=== PATIENT | female | born 1975 | race Asian ===

== ENCOUNTER 2017-03-04 09:51 | Emergency (ER) | payer BC ==
[~2017-03-04] VITALS: Ht 154.9 cm; Wt 65.8 kg
[~2017-03-04 09:51] MED LIST: DIOVAN HC1 PO; FLUTMIS6 INH
[2017-03-04 11:18] VITALS: BP 158/76; TEMP 98.2
== END 2017-03-04 11:21 | disposition home or self-care (01) ==
LOC: ED 09:51
DX: T78.49XA Other allergy, initial encounter (principal); X58.XXXA Exposure to other specified factors, initial encounter; L03.116 Cellulitis of left lower limb; L03.115 Cellulitis of right lower limb; I10 Essential (primary) hypertension
CPT/HCPCS: 90715; 96372; 99282; J2930

== ENCOUNTER 2017-11-17 23:48 | Emergency (ER) | payer OTHER ==
[~2017-11-17] VITALS: Ht 157.5 cm; Wt 2.3 kg
[2017-11-18 02:36] LABS: PLATELET COUNT 265 K/uL (152-353)
[2017-11-18 02:42] LABS: POTASSIUM 3.3 mmol/L (3.6-5.2)
[2017-11-18 03:27] VITALS: BP 129/82; TEMP 98.2
== END 2017-11-18 03:30 | disposition home or self-care (01) ==
LOC: ED 23:48
PROVIDERS: Specialist
DX: R10.9 Unspecified abdominal pain (principal)
CPT/HCPCS: 36415; 80053; 82150; 83690; 85027; 96372; 99283; J2175; J2550

== ENCOUNTER 2019-08-21 00:37 | Emergency (ER) | payer OTHER ==
[~2019-08-21] VITALS: Ht 154.9 cm; Wt 62.6 kg
[2019-08-21 01:05] LABS: PLATELET COUNT 242 K/uL (152-353)
[2019-08-21 01:40] LABS: POTASSIUM 3.7 mmol/L (3.6-5.2)
[2019-08-21 03:31] VITALS: BP 128/75; TEMP 99.7
== END 2019-08-21 03:20 | disposition home or self-care (01) ==
LOC: ED 00:37
PROVIDERS: Student in an Organized Health Care Education/Training Program
DX: J70.5 Respiratory conditions due to smoke inhalation (principal); S60.512A Abrasion of left hand, initial encounter; S60.511A Abrasion of right hand, initial encounter; X08.8XXA Exposure to other specified smoke, fire and flames, initial encounter; Y93.89 Activity, other specified; Y92.028 Other place in mobile home as the place of occurrence of the external cause; T23.152A Burn of first degree of left palm, initial encounter; T23.151A Burn of first degree of right palm, initial encounter; F43.29 Adjustment disorder with other symptoms
CPT/HCPCS: 36600; 80053; 81000; 81025; 82805; 85027; 86850; 86900; 86901; 90471; 90715; 96360; 96361; 96375; 99284; J1885; J2060

== ENCOUNTER 2020-07-31 13:40 | Outpatient (CLI) | payer OTHER ==
[2020-07-31 14:26] LABS: PLATELET COUNT 295 K/uL (152-353)
[2020-07-31 15:54] LABS: POTASSIUM 4.1 mmol/L (3.6-5.2)
== END 2020-07-31 22:24 | disposition home or self-care (01) ==
LOC: LABW 13:40
PROVIDERS: ATTEND Nurse Practitioner Adult Health
DX: I10 Essential (primary) hypertension (principal); Z72.0 Tobacco use; F33.8 Other recurrent depressive disorders
CPT/HCPCS: 36415; 80053; 80061; 82306; 83036; 84436; 84443; 84479; 85027

== ENCOUNTER 2021-03-31 22:04 | Emergency (ER) | payer OTHER ==
[~2021-03-31] VITALS: Ht 154.9 cm; Wt 62.6 kg
[2021-03-31 22:11] VITALS: BP 154/84; TEMP 98
== END 2021-03-31 23:26 | disposition home or self-care (01) ==
LOC: ED 22:04
DX: M79.18 Myalgia, other site (principal); R07.89 Other chest pain; M25.571 Pain in right ankle and joints of right foot; V89.2XXA Person injured in unspecified motor-vehicle accident, traffic, initial encounter; Y92.89 Other specified places as the place of occurrence of the external cause
CPT/HCPCS: 96372; 99282; J1885

== ENCOUNTER 2021-06-02 10:04 | Emergency (ER) | payer OTHER ==
[~2021-06-02] VITALS: Ht 154.9 cm; Wt 62.6 kg
[2021-06-02 11:15] LABS: PLATELET COUNT 266 K/uL (152-353)
[2021-06-02 11:19] LABS: POTASSIUM 3.9 mmol/L (3.6-5.2)
[2021-06-02 13:17] VITALS: BP 176/97; TEMP 98
== END 2021-06-02 13:35 | disposition home or self-care (01) ==
LOC: ED 10:04
PROVIDERS: Family Medicine
DX: I10 Essential (primary) hypertension (principal); F17.210 Nicotine dependence, cigarettes, uncomplicated
CPT/HCPCS: 80053; 85027; 99283

== ENCOUNTER 2021-06-08 16:43 | Inpatient (IN) | payer OTHER ==
[2021-06-08] VITALS (7 sets, daily range): BP systolic 115–191; BP diastolic 67–103; TEMP 96.4–98.6; Ht 152.4 cm; Wt 61.3 kg
[~2021-06-08] VITALS: Ht 152.4 cm; Wt 61.3 kg
[2021-06-08 17:17] LABS: PLATELET COUNT 280 K/uL (152-353)
[2021-06-08 17:22] LABS: POTASSIUM 4.3 mmol/L (3.6-5.2); SODIUM 138 mmol/L (136-145)
[2021-06-08 17:41] LABS: PARTIAL THROMBOPLASTIN TIME 24.9 SECONDS (24.5-33.6)
[2021-06-09] VITALS (8 sets, daily range): BP systolic 107–156; BP diastolic 66–102; TEMP 97.9–98.4
--- NOTE | 2021-06-09 01:41 | NUR ---
06/08/21 1900 PM NEW ADMISSION ASSESSMENTS 1 AND 2 BEING COMPLETED AT THIS TIME. NEURO CHECKS WERE PERFORMED AND NOTED RIGHT ARM WEAKNESS/DEFICIT. UNABE TO GRASP AND LIFT NORMAL. PUPILS ARE REACTIVE AND EQUAL. PT WITH HX OF HYPERTENTION. PT IS ALERT AND ABLE TO ANSWER QUESTIONS. PT IS WATCHING TELEVISION. PM MEDICATIONS WERE GIVEN AT 21:00PM. BEDSIDE TABLE IN EASY REACH. CALL LIGHT IN EASY REACH.
--- NOTE | 2021-06-09 01:49 | NUR ---
RESPIRATORY AT BEDSIDE. PT IS USING INCENTIVE SPIROMETER.
--- NOTE | 2021-06-09 06:02 | NUR ---
06/09/21 0000AM NEURO CHECKS RIGHT HAND/FOREARM WEAK. WEAK GRASP AND LEFT IS STRONG. PUPILS EQUAL AND REACTIVE. 0400AM NEURO CHECKS RIGHT UPPER EXT CONTINUES TO BE WEAK.
[2021-06-09 08:34] LABS: PLATELET COUNT 245 K/uL (152-353)
[2021-06-09 08:50] LABS: POTASSIUM 3.5 mmol/L (3.6-5.2); SODIUM 139 mmol/L (136-145)
--- NOTE | 2021-06-09 09:17 | NUR ---
Screened for RD to Access: Patient is on a 2 gm Na diet plan and is 5' at 135.1 lbs. and BMI at 26.38 and is overweight and IBW for 46YOF = 100+/-10% (90 to 110 lbs.) and kcal needs x 25 fo rIBW = 1100, x 30 = 1400, x 35 = 1600, x 40 = 1900 kcal/day, protein needs x .8 to 1.5 - 36 to 68 grams per dya and fluids for IBW x 25 to 40 = 1100 to 1900 ml/cc per day. 135% of IBW nad has a diagnosis of subacute front CVA, weakness, fracture of Othskull and facial bones, N/V, dehydration, asthma exacerbation, abd. pain, RBC depressed andK and MCH and MCV elevated, possible stroke, weakness, LEIGH, difficulty with speech/Dysarthria, asthma, GERD, high cholesterol. RD Recommendaitons: 1-[facility] 2-OT to wokr with the paitent 3-PT to work with the paitent 4-May sure hydrated may want to add an extra cup of fluids wiht meals 5-Add Vitamin C 500 mg BID 6-Add ZNSO4 220 mg per dya and d/c in 14 days 7-Add Hal BID 8-Add a MVI 9-If eating <75% of meals add a supplement with meals and d/c when eating >75% of meals 10-If eating <50% of meals suggest to add an appetite stimulant and d/c when eating 75% of meals 11-ST to evaluate RD available as needed
--- NOTE | 2021-06-09 09:39 | NUR ---
RT ENCOURAGED PT TO MAKE SURE SHE IS BEING COMPLETED EVERY 2 HRS. BENEFITS OF IS EXPLAINED TO PT.
[2021-06-09] MEDS ORDERED: PANTOPRAZOLE 40MG TA PO (10:15)
[2021-06-09] MEDS ORDERED: METOPROLOL25 M1 PO (10:16)
[2021-06-09] MEDS ORDERED: AMLODIPINE BESYLATE PO (10:16)
[2021-06-09] MEDS ORDERED: HYDRALAZINE50 MG PO (10:17)
[2021-06-09] MEDS ORDERED: VALSARTAN320 MG PO (10:17)
--- NOTE | 2021-06-09 11:30 | NUR ---
PT STATES PATIENT AMBULATED TO CHAIR WITHOUT ASSISTANCE, PATIENT HAD MINIMAL UNSTEADINESS AND EQUAL STRENGTH IN BILAT LOWER EXT
[2021-06-10] VITALS (7 sets, daily range): BP systolic 99–140; BP diastolic 58–79; TEMP 97.8–98.9
[2021-06-10 05:35] LABS: POTASSIUM 3.7 mmol/L (3.6-5.2)
--- NOTE | 2021-06-10 13:30 | NUR ---
PT LAYING BED TALKING ON TELEPHONE. DENIES ANY PAIN/DISCOMFORT. PT CONTINUES TO HAVE DIFFICULTY AMBULATING WITHOUT ASSISTANCE R/T CVA. PTS SPEECH SLURRED. PT CAN FEED HERSELF AND APPETITE ADEQUATE. PT A&O X4. PT COMPLIANT WITH PT/OT. AM MEDS ADMINISTERED AND PT HAS NO DIFFICULTY SWALLOWING MEDS.
--- NOTE | 2021-06-10 16:23 | NUR ---
PT WALKED IN THE HALLWAY WITH ASSISTANCE FROM PHYSICAL THERAPY. PTS GAIT STEADY BUT SLOW. PTS SPEECH SLOW AND SLURRED BUT ABLE TO COMPREHEND. PTS MOOD, POSITIVE AND ELATED. PT ED ON COMPLIANCE WITH MEDS AND TREATMENT. PT STATED SHE HAD BEEN NONN-COMPLIANT WITH MEDS AND TREATMENT WHICH LED TO CVA.
[2021-06-11] VITALS: BP 109/70; TEMP 98.5
[2021-06-11 04:00] VITALS: BP 99/67; TEMP 98
[2021-06-11 08:00] VITALS: BP 114/63; TEMP 98.1
--- NOTE | 2021-06-11 08:51 | NUR ---
Referral sent to writer Kylie spoke with Karina and she is scheduling follow up appointment. has also attempted multiple times to contact her pcp at [facility] in [place]. Was finally able to leave a voice mail for someone to call us back so that appointment could be scheduled.
--- NOTE | 2021-06-11 10:27 | NUR ---
PT AWAKE AND ALERT WATCHING TV. PT COMPLIANT WITH MEDS AND TREATMENT. DENIES ANY PAIN/DISCOMFORT. PLAN OF CARE IS FOR PT TO BE DISCHARGED HOME TODAY. PTS GAIT STEADY BUT SLOW. PT STATED "I'M READY TO GO HOME." NAD NOTED. IV SITE TO RAC INTACT WITH NO SWELLING OR REDNESS NOTED. NO VOICED COMPLAINTS.
[2021-06-11] MEDS ORDERED: AMLODIPINE BESYLATE PO (10:58)
[2021-06-11] MEDS ORDERED: HYDR25TA57 PO (10:59)
[2021-06-11] MEDS ORDERED: ATOR20TA2 PO (10:59)
[2021-06-11] MEDS ORDERED: ENTERIC COATED325 MG PO (10:59)
[2021-06-11] MEDS ORDERED: ACET-206 PO (10:59)
[2021-06-11] MEDS ORDERED: PANTOPRAZOLE 40MG TA PO (11:00)
[2021-06-11 12:00] VITALS: BP 129/76; TEMP 98.7
--- NOTE | 2021-06-11 13:48 | NUR ---
PT DISCHARGED TO GO HOME PER HCP. NO F/U APPOINTMENTS HAVE BEEN MADE FOR PT, UR WILL CALL ON MONDAY AND F/U WITH PT FOR ALL F/U APPOINTMENTS. PT GIVEN DISCHARGE ORDERS AND VERBALIZED UNDERSTANDING. PRESCRIPTIONS CALLED IN TO [facility] AND LIST OF NEW MEDS GIVEN TO PT ON DISCHARGE ORDERS. PT ED ON MED COMPLIANCE AND TO WHAT S/S TO REPORT TO PCP AND WHEN TO GO TO ER. IV SITE TO [facility]AC D/C'D AND TELEMETRY, NO SWELLING OR REDNESS NOTED TO SITE. PT TRANSPORTED OUT OF FACILITY IN WHEELCHAIR AT 1345, FAMILY/FRIEND AWAITING TO TAKE PT HOME.
== END 2021-06-11 13:44 | disposition home or self-care (01) | DRG 65 ==
LOC: ED 16:43 → MED/SURG 17:45
PROVIDERS: Hospitalist; ADMIT Internal Medicine Endocrinology, Diabetes & Metabolism; ATTEND Internal Medicine Endocrinology, Diabetes & Metabolism
DX: I63.81 Other cerebral infarction due to occlusion or stenosis of small artery (principal); G81.91 Hemiplegia, unspecified affecting right dominant side; I10 Essential (primary) hypertension; E78.49 Other hyperlipidemia; K21.9 Gastro-esophageal reflux disease without esophagitis; J45.998 Other asthma; I69.328 Other speech and language deficits following cerebral infarction; M62.81 Muscle weakness (generalized); Z74.1 Need for assistance with personal care; R26.2 Difficulty in walking, not elsewhere classified
CPT/HCPCS: 36415; 80048; 80053; 80061; 82550; 83880; 84484; 85027; 85610; 85730; 87635; 93005; 96372; 96374; 99284; A9576; J0360; J1650; U0003

== ENCOUNTER 2021-08-20 10:38 | Outpatient (CLI) | payer OTHER ==
[~2021-08-20 10:38] MED LIST changes: +ACET-206 PO; +AMLODIPINE BESYLATE PO; +ATOR20TA2 PO; +ENTERIC COATED325 MG PO; +HYDR25TA57 PO; +HYDRALAZINE50 MG PO; +METOPROLOL25 M1 PO; +PANTOPRAZOLE 40MG TA PO; +VALSARTAN320 MG PO
== END 2021-08-20 20:35 | disposition home or self-care (01) ==
LOC: RESP 10:38
PROVIDERS: ATTEND Specialist
DX: I63.9 Cerebral infarction, unspecified (principal); I10 Essential (primary) hypertension
CPT/HCPCS: 36415; 81240; 81241; 82565; 83090; 84520; 85240; 85300; 85301; 85303; 85306; 85652; 86038; 86147; Q9963